=== PATIENT | female | born 1995 | race Caucasian/White ===

== ENCOUNTER → 2017-03-22 11:46 | Day surgery (SDC) | payer BC ==
[~2017-03-22 11:46] MED LIST: Buffered Lidocaine 0.9% SYRIN* 5 ML/SYR SYRINGE INTRADERM ONE; Bupivacaine 0.25% SDV* 30 ML ONE; HYDROcodone/ACETAMIN 5-325 MG* 1 TAB PO PRN; Ketorolac INJ* 30 MG/ML 1 ML VIAL ONE; Midazolam* 1 MG/ML 10 ML VIAL (10 MG) ONE; Naloxone* 0.4 MG/ML 1 ML VIAL IV PRN; Ondansetron INJ* 2 MG/ML VIAL IV PRN; fentaNYL* 50 MCG/ML 2 ML VIAL (100 MCG VIAL) IV PRN; fentaNYL* 50 MCG/ML 2 ML VIAL (100 MCG VIAL) ONE; oxyCODONE TAB* 5 MG TAB PO PRN
[2017-03-22 15:38] VITALS: BP 104/61
--- NOTE | 2017-03-23 15:30 | OP ---
DATE OF OPERATION: 03/22/17 - [facility] DATE OF : 89 SURGEON: Jairon Brady MD SQUIRREL WORKER: FRANK Rivera ANESTHESIOLOGIST: Shelton Morales MD ANESTHESIA: Local MAC. PRE-OP DIAGNOSIS: Left wrist de Quervain's tenosynovitis with first dorsal compartment tendon sheath mass. POST-OP DIAGNOSIS: Left wrist de Quervain's tenosynovitis with first dorsal compartment tendon sheath mass. OPERATIVE PROCEDURE: 1. Left wrist de Quervain's release. 2. Excision of left wrist dorsal compartment tendon sheath mass. INDICATIONS: Donna has had a firm bump over the first dorsal compartment tendon sheath associated with severe de Quervain's pain. We talked about her treatment options. She had wanted to proceed with release. She understood the risks and benefits including the risks of some numbness and tingling over the dorsal radial hand. ESTIMATED BLOOD LOSS: 2 mL. COMPLICATIONS: None. FINDINGS: As expected, there was a nodular mass of the first dorsal compartment tendon sheath. DESCRIPTION OF PROCEDURE: Donna was seen in the preoperative holding area. The correct side, site, and procedure were identified. We came back to the operating room, where she got some anesthesia and then infiltrated the operative area with 0.25% plain Marcaine. The arm was then prepped and draped in the usual fashion. A time-out performed. I exsanguinated the arm with the Esmarch and the tourniquet was inflated to 250 mmHg. I then made a 2-cm transverse incision just proximal to the radial styloid over the first dorsal compartment tendon sheath. Dissection was carried down bluntly and the nerve was retracted out of the operative field. Once I had direct visualization of the tendon sheath, the nodular mass on the tendon sheath was visible. This was ellipsed out and handed off as a specimen. I then took the knife and released the first dorsal compartment tendon sheath in line with the tendons just on the dorsal aspect. There was a very tight accessory compartment, which was released first. There was quite a bit of tendon fraying underneath this. I then went ahead and released the septum between the compartments and the septum was in fact excised in its entirety. I completed the release distally and proximally with tenotomy scissors. Once there was absolutely no pressure on the tendons and everything was nicely, I noted that there was a quite a bit of bony prominence where the septum was at and so I took the rongeur and I trimmed this down to a nice flat surface. I then irrigated out the wound and the wound was closed with 4-0 Monocryl and Steri-Strips. The wound was dressed with Xeroform, 4x4s, sterile Webril, and Khai bandage. Tourniquet was deflated and she was taken to the recovery room in stable condition. [id number]/[facility] #: [id number] SOTERO
== END | disposition home or self-care (01) ==
LOC: OR 11:46
PROVIDERS: ATTEND Orthopaedic Surgery Hand Surgery
DX: M65.4 Radial styloid tenosynovitis [de Quervain] (principal); M67.833 Other specified disorders of tendon, right wrist
CPT/HCPCS: 81025; J1885; J2250; J3010